=== PATIENT | male | born 1985 | race Caucasian/White ===

== ENCOUNTER 2018-11-04 11:39 | Emergency (ER) | payer OTHER ==
[~2018-11-04] VITALS: Ht 190.5 cm; Wt 93.2 kg
[~2018-11-04 11:39] MED LIST: ALEVE220 M1 PO; ALEVE220 M2 PO; AMOXICILLIN/CL875 MG PO; AMOXICILLIN500 MG PO; AUGMENTIN875TAB PO; CEPHALEXIN500 MG OR; CLARITIN10 M1 PO; FLONASE NASAL50 MCG; LORTAB 5 OR; PAROXETINE10 MG PO; PAROXETINE25 MG PO; PRILOSEC40 MG PO; TIZANIDINE4 MG PO; ZANTAC150 M1 PO; ZOFRAN ODT4 MG PO; ZOFRAN4 MG/TAB PO
[2018-11-04] MEDS ORDERED: ESCITALOPRAM OX20 MG PO (12:42)
[2018-11-04] MEDS ORDERED: ATORVASTATIN CA40 MG PO (12:42)
[2018-11-04] MEDS ORDERED: OMEPRAZOLE20 M2 PO (12:43)
[2018-11-04] MEDS ORDERED: KEFLEX500 M1 PO (13:04)
[2018-11-04 13:10] VITALS: BP 144/79
== END 2018-11-04 13:10 | disposition home or self-care (01) | DRG 605 ==
LOC: ED 11:39
PROC: 0HQGXZZ Repair Left Hand Skin, External Approach (ICD-10-PCS; principal; 2018-11-04)
PROC: 2W3KX1Z Immobilization of Left Finger using Splint (ICD-10-PCS; 2018-11-04)
DX: S61.217A Laceration without foreign body of left little finger without damage to nail, initial encounter (principal); W31.2XXA Contact with powered woodworking and forming machines, initial encounter; Y93.H2 Activity, gardening and landscaping; Y92.007 Garden or yard of unspecified non-institutional (private) residence as the place of occurrence of the external cause